=== PATIENT | male | born 1955 | race Caucasian/White ===

== ENCOUNTER 2017-01-05 06:32 | Inpatient (IN) | payer OTHER ==
[~2017-01-05] VITALS: Ht 177.8 cm; Wt 107.5 kg
[~2017-01-05 06:32] MED LIST: ACIPHEX20 MG PO; ADVAIR 250/501 DISK IH; AZOR 5/20 MG1 TABLET PO; NEURONTIN300 MG PO
[2017-01-05 07:42] LABS: HEMATOCRIT 57.1 % (38.0-50.0); MCH 30.1 PG (29.0-34.0); MCHC 33.1 G/DL (30.0-36.0); MCV 90.9 FL (86-99); MEAN PLAT.VOLUME 8.8 uM^3 (9.0-12.4); PLATELET COUNT 387 K/uL (156-360); RBC DIS.WIDTH-CV 12.5 % (11.8-14.6); RBC DIS.WIDTH-SD 42.1 % (39-53); RED BLOOD COUNT 6.28 M/uL (4.00-5.50); WHITE BLOOD COUNT 17.3 K/uL (4.1-10.2)
[2017-01-05 08:11] LABS: ANION GAP 9 MEQ/L (2-14); CHLORIDE 94 MEQ/L (99-109); POTASSIUM 4.1 MEQ/L (3.7-5.4); SAMPLE HEMOLYSIS CHECK 0; SAMPLE ICTERIC CHECK 0; SAMPLE LIPEMIA CHECK 0; SODIUM 133 MEQ/L (136-147); TOTAL BILIRUBIN 0.6 MG/DL (0.0-1.0)
[2017-01-05 08:17] LABS: ALKALINE PHOSPHATASE 62 IU/L (3-129); GFR ESTIMATE (CALCULATED) > 59 mL/min/; GLUCOSE 205 mg/dL (70-99); UREA NITROGEN (BUN) 14 mg/dL (9-23)
[2017-01-05] MEDS ORDERED: OXYCODONE HCL15 MG PO (10:38)
[2017-01-05] MEDS ORDERED: PROAIR HFA8.5 GM IH (10:38)
[2017-01-05] MEDS ORDERED: VALSARTAN-HCTZ1 EAC1 PO (10:38)
[2017-01-05] MEDS ORDERED: ADVIL200 M1 PO (10:39)
[2017-01-05 12:33] LABS: ADD MIUA? NO; BILIRUBIN NEGATIVE; BLOOD NEGATIVE; COLOR YELLOW ((YELLOW)); GLUCOSE (STRIP) NEGATIVE; KETONES NEGATIVE; LEUKOCYTES NEGATIVE; NITRITE NEGATIVE; PROTEIN (STRIP) 30
[2017-01-05 13:08] LABS: SPECIFIC GRAVITY 1.096 (1.000-1.030)
[2017-01-05 13:40] VITALS: BP 131/63
[2017-01-05 15:33] VITALS: BP 125/58
[2017-01-05 19:55] VITALS: BP 147/72
[2017-01-05 23:50] VITALS: BP 146/72
[2017-01-06] VITALS (16 sets, daily range): BP systolic 72–195; BP diastolic 46–98
[2017-01-06 11:00] LABS: BASOPHIL COUNT 0.1 K/uL (0-0.1); EOSINOPHIL (%) 0 % (0-5); HEMATOCRIT 59.8 % (38.0-50.0); IMMATURE GRANULOCYTE (%) 1.1 % (0.0-0.7); IMMATURE GRANULOCYTE COUNT 0.3 K/uL; INSTRUMENT ABS NEUTROPHIL CT 24.5 K/uL; LYMPHOCYTE COUNT 1.9 K/uL (1.0-2.8); MCH 29.6 PG (29.0-34.0); MCHC 32.4 G/DL (30.0-36.0); MCV 91.3 FL (86-99); MEAN PLAT.VOLUME 8.8 uM^3 (9.0-12.4); MONOCYTE (%) 5.3 % (3-12); MONOCYTE COUNT 1.5 K/uL (0-0.8); NEUTROPHIL (%) 86.8 % (45-76); NEUTROPHIL COUNT 24.5 K/uL (1.8-6.4); PLATELET COUNT 398 K/uL (156-360); RBC DIS.WIDTH-CV 12.9 % (11.8-14.6); RBC DIS.WIDTH-SD 43.4 % (39-53); RED BLOOD COUNT 6.55 M/uL (4.00-5.50); WHITE BLOOD COUNT 28.3 K/uL (4.1-10.2)
[2017-01-06 11:22] LABS: ANION GAP 16 MEQ/L (2-14); CHLORIDE 99 MEQ/L (99-109); GFR ESTIMATE (CALCULATED) > 59 mL/min/; GLUCOSE 199 mg/dL (70-99); POTASSIUM 4.4 MEQ/L (3.7-5.4); SAMPLE HEMOLYSIS CHECK 0; SAMPLE ICTERIC CHECK 0; SAMPLE LIPEMIA CHECK 0; UREA NITROGEN (BUN) 20 mg/dL (9-23)
[2017-01-06 11:23] LABS: SODIUM 141 MEQ/L (136-147)
[2017-01-06 15:55] LABS: BASE EXCESS -1.6 mEq/L (-3 to +3); BICARBONATE 27.4 mEq/L (22-26); CARBOXY HGB 1.2 % (0-5); METHEMOGLOBIN 1.3 % (0-1.5); PCO2 61 mm Hg (35-45); PO2 68 mm Hg (80-100)
[2017-01-06 15:56] LABS: COMMENTS - BLOOD GASES A+C+; DEVICE 980; FI02 80 %; MECHANICAL RATE 12 resp/min; MODE A/C; PEEP 5 CM/H20; SITE LR; TIDAL VOLUME 550 ML; TOTAL RESP RATE 18 resp/min
[2017-01-06 15:57] LABS: pH 7.26 (7.35-7.45)
[2017-01-06 16:41] LABS: BASE EXCESS -0.8 mEq/L (-3 to +3); CARBOXY HGB 1.2 % (0-5); COMMENTS - BLOOD GASES A+C+; DEVICE 980; FI02 80 %; MECHANICAL RATE 16 resp/min; METHEMOGLOBIN 1.3 % (0-1.5); MODE A/C; PCO2 61 mm Hg (35-45); PEEP 5 CM/H20; PO2 61 mm Hg (80-100); SITE LR; TIDAL VOLUME 550 ML; TOTAL RESP RATE 20 resp/min
[2017-01-06 16:42] LABS: pH 7.27 (7.35-7.45)
[2017-01-06 17:15] LABS: METH RESISTANT S AUREUS PCR NEGATIVE (NEGATIVE)
[2017-01-06 18:06] LABS: PROBE CHECK PASS; SPECIMEN PROCESSING CONTROL PASS
[2017-01-06 22:47] LABS: EOSINOPHIL (%) 0.1 % (0-5); HEMATOCRIT 49.4 % (38.0-50.0); IMMATURE GRANULOCYTE (%) 0.3 % (0.0-0.7); IMMATURE GRANULOCYTE COUNT 0.1 K/uL; INSTRUMENT ABS NEUTROPHIL CT 14.7 K/uL; LYMPHOCYTE COUNT 1.3 K/uL (1.0-2.8); MCH 30.6 PG (29.0-34.0); MCV 92.9 FL (86-99); MONOCYTE (%) 5.7 % (3-12); NEUTROPHIL (%) 86.1 % (45-76); NEUTROPHIL COUNT 14.7 K/uL (1.8-6.4); RBC DIS.WIDTH-CV 13.2 % (11.8-14.6); RBC DIS.WIDTH-SD 45.1 % (39-53); WHITE BLOOD COUNT 17.1 K/uL (4.1-10.2)
[2017-01-06 22:48] LABS: RED BLOOD COUNT 5.32 M/uL (4.00-5.50)
[2017-01-06 22:56] LABS: ALKALINE PHOSPHATASE 33 IU/L (3-129); ANION GAP 8 MEQ/L (2-14); CHLORIDE 107 MEQ/L (99-109); GFR ESTIMATE (CALCULATED) > 59 mL/min/; GLUCOSE 176 mg/dL (70-99); MAGNESIUM 1.6 mg/dl (1.3-2.7); POTASSIUM 4.6 MEQ/L (3.7-5.4); SAMPLE HEMOLYSIS CHECK 1; SAMPLE ICTERIC CHECK 0; SAMPLE LIPEMIA CHECK 0; SODIUM 140 MEQ/L (136-147); UREA NITROGEN (BUN) 24 mg/dL (9-23)
[2017-01-06 22:59] LABS: PLAT.SUFFICIENCY ADEQUATE; PLATELET CLUMPS PRESENT - PLATELET COUNT APPEARS ADQ.; PLATELET COUNT UNABLE TO REPORT K/uL (156-360)
[2017-01-07] VITALS (24 sets, daily range): BP systolic 89–143; BP diastolic 44–74
[2017-01-07 05:49] LABS: HEMATOCRIT 43.3 % (38.0-50.0); MCH 29.8 PG (29.0-34.0); MCHC 32.8 G/DL (30.0-36.0); MCV 90.8 FL (86-99); MEAN PLAT.VOLUME 9.2 uM^3 (9.0-12.4); PLATELET COUNT 283 K/uL (156-360); RBC DIS.WIDTH-CV 13.1 % (11.8-14.6); RBC DIS.WIDTH-SD 43.6 % (39-53); RED BLOOD COUNT 4.77 M/uL (4.00-5.50); WHITE BLOOD COUNT 15.1 K/uL (4.1-10.2)
[2017-01-07 06:10] LABS: ANION GAP 7 MEQ/L (2-14); CHLORIDE 107 MEQ/L (99-109); GFR ESTIMATE (CALCULATED) > 59 mL/min/; GLUCOSE 167 mg/dL (70-99); POTASSIUM 4.1 MEQ/L (3.7-5.4); SAMPLE HEMOLYSIS CHECK 0; SAMPLE ICTERIC CHECK 0; SAMPLE LIPEMIA CHECK 0; SODIUM 141 MEQ/L (136-147); UREA NITROGEN (BUN) 25 mg/dL (9-23)
[2017-01-07 06:11] LABS: MAGNESIUM 2.1 mg/dl (1.3-2.7)
[2017-01-07 19:03] LABS: ADD MIUA? YES; BILIRUBIN NEGATIVE; BLOOD MODERATE; COLOR AMBER ((YELLOW)); GLUCOSE (STRIP) 50; KETONES 5; LEUKOCYTES NEGATIVE; NITRITE NEGATIVE; PROTEIN (STRIP) 100; SPECIFIC GRAVITY 1.032 (1.000-1.030)
[2017-01-07 19:18] LABS: BACTERIA NONE SEEN /HPF; EPITHELIAL CELLS NONE SEEN /HPF; MUCUS TRACE /LPF; RED BLOOD CELLS 0-5 /HPF (0-5); UCUL ADDED? NO; WHITE BLOOD CELLS 0-5 /HPF (0-5)
[2017-01-08] VITALS (23 sets, daily range): BP systolic 116–162; BP diastolic 70–95
[2017-01-08 05:21] LABS: EOSINOPHIL (%) 0.1 % (0-5); HEMATOCRIT 42.2 % (38.0-50.0); IMMATURE GRANULOCYTE (%) 0.6 % (0.0-0.7); IMMATURE GRANULOCYTE COUNT 0.1 K/uL; INSTRUMENT ABS NEUTROPHIL CT 9.8 K/uL; LYMPHOCYTE COUNT 1.8 K/uL (1.0-2.8); MCH 29.8 PG (29.0-34.0); MCHC 32.2 G/DL (30.0-36.0); MCV 92.5 FL (86-99); MEAN PLAT.VOLUME 9.2 uM^3 (9.0-12.4); MONOCYTE (%) 7.6 % (3-12); NEUTROPHIL (%) 77.5 % (45-76); NEUTROPHIL COUNT 9.8 K/uL (1.8-6.4); PLATELET COUNT 279 K/uL (156-360); RBC DIS.WIDTH-CV 13.3 % (11.8-14.6); RBC DIS.WIDTH-SD 45.4 % (39-53); RED BLOOD COUNT 4.56 M/uL (4.00-5.50); WHITE BLOOD COUNT 12.6 K/uL (4.1-10.2)
[2017-01-08 06:21] LABS: ANION GAP 6 MEQ/L (2-14); CHLORIDE 105 MEQ/L (99-109); GFR ESTIMATE (CALCULATED) > 59 mL/min/; POTASSIUM 3.6 MEQ/L (3.7-5.4); SAMPLE HEMOLYSIS CHECK 0; SAMPLE ICTERIC CHECK 0; SAMPLE LIPEMIA CHECK 0; SODIUM 141 MEQ/L (136-147); UREA NITROGEN (BUN) 19 mg/dL (9-23)
[2017-01-08 06:25] LABS: GLUCOSE 104 mg/dL (70-99)
[2017-01-08 08:15] LABS: MAGNESIUM 1.9 mg/dl (1.3-2.7)
[2017-01-09] VITALS (22 sets, daily range): BP systolic 121–152; BP diastolic 74–93
[2017-01-09 05:45] LABS: HEMATOCRIT 43.5 % (38.0-50.0); MCH 29.3 PG (29.0-34.0); MCHC 31.7 G/DL (30.0-36.0); MCV 92.4 FL (86-99); PLATELET COUNT 315 K/uL (156-360); RBC DIS.WIDTH-CV 13.1 % (11.8-14.6); RBC DIS.WIDTH-SD 45.1 % (39-53); RED BLOOD COUNT 4.71 M/uL (4.00-5.50); WHITE BLOOD COUNT 9.2 K/uL (4.1-10.2)
[2017-01-09 06:31] LABS: ANION GAP 8 MEQ/L (2-14); CHLORIDE 106 MEQ/L (99-109); GFR ESTIMATE (CALCULATED) > 59 mL/min/; GLUCOSE 88 mg/dL (70-99); POTASSIUM 4.3 MEQ/L (3.7-5.4); SAMPLE HEMOLYSIS CHECK 0; SAMPLE ICTERIC CHECK 0; SAMPLE LIPEMIA CHECK 0; SODIUM 142 MEQ/L (136-147); UREA NITROGEN (BUN) 18 mg/dL (9-23)
[2017-01-10] VITALS (16 sets, daily range): BP systolic 131–173; BP diastolic 78–106
[2017-01-10 05:58] LABS: HEMATOCRIT 46.8 % (38.0-50.0); MCHC 32.3 G/DL (30.0-36.0); PLATELET COUNT 329 K/uL (156-360); RBC DIS.WIDTH-CV 13.2 % (11.8-14.6); RBC DIS.WIDTH-SD 44.8 % (39-53); RED BLOOD COUNT 5.03 M/uL (4.00-5.50); WHITE BLOOD COUNT 9.6 K/uL (4.1-10.2)
[2017-01-10 06:38] LABS: ANION GAP 11 MEQ/L (2-14); CHLORIDE 102 MEQ/L (99-109); GFR ESTIMATE (CALCULATED) > 59 mL/min/; GLUCOSE 104 mg/dL (70-99); POTASSIUM 4.9 MEQ/L (3.7-5.4); SAMPLE HEMOLYSIS CHECK 1; SAMPLE ICTERIC CHECK 0; SAMPLE LIPEMIA CHECK 0; SODIUM 143 MEQ/L (136-147); UREA NITROGEN (BUN) 20 mg/dL (9-23)
[2017-01-10 06:48] LABS: MAGNESIUM 2.2 mg/dl (1.3-2.7)
[2017-01-11 03:35] VITALS: BP 159/75
[2017-01-11 05:16] LABS: HEMATOCRIT 45.3 % (38.0-50.0); MCH 29.1 PG (29.0-34.0); MCHC 31.6 G/DL (30.0-36.0); MCV 92.3 FL (86-99); PLATELET COUNT 348 K/uL (156-360); RBC DIS.WIDTH-CV 12.7 % (11.8-14.6); RBC DIS.WIDTH-SD 43.1 % (39-53); RED BLOOD COUNT 4.91 M/uL (4.00-5.50); WHITE BLOOD COUNT 9.8 K/uL (4.1-10.2)
[2017-01-11 05:41] LABS: ANION GAP 10 MEQ/L (2-14); CHLORIDE 105 MEQ/L (99-109); GFR ESTIMATE (CALCULATED) > 59 mL/min/; GLUCOSE 95 mg/dL (70-99); MAGNESIUM 2.2 mg/dl (1.3-2.7); POTASSIUM 4.4 MEQ/L (3.7-5.4); SAMPLE HEMOLYSIS CHECK 0; SAMPLE ICTERIC CHECK 0; SAMPLE LIPEMIA CHECK 0; SODIUM 145 MEQ/L (136-147); UREA NITROGEN (BUN) 22 mg/dL (9-23)
[2017-01-11 08:34] VITALS: BP 155/72
[2017-01-11 12:37] VITALS: BP 152/78
[2017-01-11 15:39] VITALS: BP 155/72
[2017-01-11 19:28] VITALS: BP 162/79
[2017-01-11 23:58] VITALS: BP 152/73
[2017-01-12 04:54] VITALS: BP 141/66
[2017-01-12 08:10] VITALS: BP 147/69
[2017-01-12 12:23] VITALS: BP 161/75
[2017-01-12 16:30] VITALS: BP 160/72
[2017-01-12 19:50] VITALS: BP 183/81
[2017-01-12 23:00] VITALS: BP 157/81
[2017-01-13 03:22] VITALS: BP 144/76
[2017-01-13 04:41] LABS: HEMATOCRIT 46.1 % (38.0-50.0); MCH 29.4 PG (29.0-34.0); MCHC 32.5 G/DL (30.0-36.0); MCV 90.2 FL (86-99); MEAN PLAT.VOLUME 9.3 uM^3 (9.0-12.4); PLATELET COUNT 392 K/uL (156-360); RBC DIS.WIDTH-CV 12.1 % (11.8-14.6); RBC DIS.WIDTH-SD 40.4 % (39-53); RED BLOOD COUNT 5.11 M/uL (4.00-5.50); WHITE BLOOD COUNT 10.2 K/uL (4.1-10.2)
[2017-01-13 04:47] LABS: CHLORIDE 101 mEq/L (99-109)
[2017-01-13 04:48] LABS: POTASSIUM 4.2 mEq/L (3.7-5.4)
[2017-01-13 04:49] LABS: SODIUM 135 mEq/L (136-147)
[2017-01-13 04:51] LABS: ANION GAP 8 MEQ/L (2-14)
[2017-01-13 04:53] LABS: GFR ESTIMATE (CALCULATED) > 59 mL/min/; GLUCOSE 177 mg/dL (70-99)
[2017-01-13 04:54] LABS: UREA NITROGEN (BUN) 14 mg/dL (9-23)
[2017-01-13 06:53] VITALS: BP 152/85
[2017-01-13 10:26] VITALS: BP 174/81
[2017-01-13 15:04] VITALS: BP 167/79
[2017-01-13 20:33] VITALS: BP 177/85
[2017-01-14] VITALS (8 sets, daily range): BP systolic 133–182; BP diastolic 69–88
[2017-01-15 04:00] VITALS: BP 136/72
[2017-01-15 07:10] VITALS: BP 162/76
[2017-01-15 11:00] VITALS: BP 147/73
[2017-01-15] MEDS ORDERED: PANTOPRAZOLE SO40 MG PO (17:29)
[2017-01-15] MEDS ORDERED: NORCO 5/3251 TABLET PO (17:29)
[2017-01-15] MEDS ORDERED: COLACE100 MG PO (17:30)
== END 2017-01-15 18:30 | disposition home or self-care (01) | DRG 326 ==
LOC: EME → EDBD 06:32 → 4EAST 11:21 → EDOF 11:21 → 4WEST 11:21 → ENRESERV 11:50 → 3EAST 13:25 → ENRESERV 01-06 14:00 → 3EAST 01-06 14:04 → ENRESERV 01-06 14:06 → 4WEST 01-06 14:45 → ENRESERV 01-10 21:26 → 4EAST 01-10 22:09 → ENRESERV 01-13 07:30 → CANRESERV 01-13 07:30 → 4EAST 01-15 18:30
PROVIDERS: Internal Medicine Critical Care Medicine; Nurse Practitioner Family; Surgery; Thoracic Surgery (Cardiothoracic Vascular Surgery)
PROC: 0DU907Z Supplement Duodenum with Autologous Tissue Substitute, Open Approach (ICD-10-PCS; principal; 2017-01-06)
PROC: 0DNW0ZZ Release Peritoneum, Open Approach (ICD-10-PCS; principal; 2017-01-06)
PROC: 0DQ90ZZ Repair Duodenum, Open Approach (ICD-10-PCS; principal; 2017-01-06)
PROC: 5A1945Z Respiratory Ventilation, 24-96 Consecutive Hours (ICD-10-PCS; 2017-01-06)
PROC: 0BH17EZ Insertion of Endotracheal Airway into Trachea, Via Natural or Artificial Opening (ICD-10-PCS; 2017-01-06)
DX: K28.1 Acute gastrojejunal ulcer with perforation (principal); T39.315A Adverse effect of propionic acid derivatives, initial encounter; K66.0 Peritoneal adhesions (postprocedural) (postinfection); K66.8 Other specified disorders of peritoneum; R18.8 Other ascites; R65.10 Systemic inflammatory response syndrome (SIRS) of non-infectious origin without acute organ dysfunction; J96.00 Acute respiratory failure, unspecified whether with hypoxia or hypercapnia; J98.11 Atelectasis; R34 Anuria and oliguria; E83.39 Other disorders of phosphorus metabolism; E87.6 Hypokalemia; I10 Essential (primary) hypertension; J44.9 Chronic obstructive pulmonary disease, unspecified; K59.00 Constipation, unspecified; K21.9 Gastro-esophageal reflux disease without esophagitis; E78.5 Hyperlipidemia, unspecified; G89.29 Other chronic pain; M54.9 Dorsalgia, unspecified; E66.9 Obesity, unspecified; F17.210 Nicotine dependence, cigarettes, uncomplicated; Z68.34 Body mass index [BMI] 34.0-34.9, adult; Z85.038 Personal history of other malignant neoplasm of large intestine; Z85.048 Personal history of other malignant neoplasm of rectum, rectosigmoid junction, and anus; Z86.010 Personal history of colon polyps; Z86.718 Personal history of other venous thrombosis and embolism; Z90.49 Acquired absence of other specified parts of digestive tract
CPT/HCPCS: 36600; 71010; 71020; 74000; 74020; 74177; 74241; 80048; 80053; 81003; 82803; 83605; 83735; 84100; 85025; 85025 91; 85027; 87040; 87070; 87205; 87641; 93970; 94002; 94003; 94010; 94640; 94640 76; 94667; 94668; 94760; 94799; 97530 GO; 97530 GP; 99202; 99281; 99285; C1753; C9113; J0360; J0696; J1170; J1200; J1335; J1644; J1940; J2250; J2270; J2405; J2543; J2704; J2765; J3010; J3475; J7030; J7040; J7050; J7120